=== PATIENT | female | born 1940 | race Caucasian/White ===

== ENCOUNTER 2020-04-08 10:54 | Emergency (ER) | payer MEDICARE ==
[~2020-04-08] VITALS: Ht 165.1 cm; Wt 72.7 kg
[2020-04-08] MEDS ORDERED: TYLENOL 325MG325 MG PO (13:38)
[2020-04-08] MEDS ORDERED: GLUCOPHAGE1000 MG PO (14:43)
[2020-04-08 14:45] VITALS: BP 164/98; PULSE 95; TEMP 98.3
== END 2020-04-08 14:46 | disposition home or self-care (01) ==
LOC: COL.ER 10:54
DX: S42.252A Displaced fracture of greater tuberosity of left humerus, initial encounter for closed fracture (principal); S42.031A Displaced fracture of lateral end of right clavicle, initial encounter for closed fracture; Z86.73 Personal history of transient ischemic attack (TIA), and cerebral infarction without residual deficits; Z79.84 Long term (current) use of oral hypoglycemic drugs; W06.XXXA Fall from bed, initial encounter; Y92.009 Unspecified place in unspecified non-institutional (private) residence as the place of occurrence of the external cause

== ENCOUNTER 2021-09-01 07:42 | Emergency (ER) | payer MEDICARE ==
[~2021-09-01] VITALS: Ht 172.7 cm; Wt 72.7 kg
[~2021-09-01 07:42] MED LIST: ASPIRIN 81M81 MG/TA2 PO; COZAAR 50MG50 MG/TAB PO; GLUCOPHAGE1000 MG PO; GLUCOPHAGE500 MG/TAB PO; PLAVIX 75MG TAB75 MG PO; TYLENOL 325MG325 MG PO; ZOCOR 20MG20 MG PO
[2021-09-01 07:43] VITALS: TEMP 98.2
[2021-09-01] MEDS ORDERED: ZOFRAN ODT4 MG PO (09:19)
[2021-09-01 09:21] VITALS: BP 165/84; PULSE 76
== END 2021-09-01 09:30 | disposition home or self-care (01) ==
LOC: COL.ER 07:42
DX: S09.90XA Unspecified injury of head, initial encounter (principal); S00.03XA Contusion of scalp, initial encounter; S13.9XXA Sprain of joints and ligaments of unspecified parts of neck, initial encounter; S50.01XA Contusion of right elbow, initial encounter; S20.219A Contusion of unspecified front wall of thorax, initial encounter; Z86.73 Personal history of transient ischemic attack (TIA), and cerebral infarction without residual deficits; Z79.02 Long term (current) use of antithrombotics/antiplatelets; W01.0XXA Fall on same level from slipping, tripping and stumbling without subsequent striking against object, initial encounter; Y93.01 Activity, walking, marching and hiking